=== PATIENT | male | born 1985 | race Caucasian/White ===

== ENCOUNTER 2019-03-10 10:56 | Emergency (ER) | payer SELFPAY ==
[2019-03-10 11:00] VITALS: BP 116/97; PULSE 69; RESP 20; TEMP 36.4; O2SAT 100; BMI 36.9
--- NOTE | 2019-03-10 11:10 | EKG12_ITS ---
Test Reason : CP Blood Pressure : / mmHG Vent. Rate : 075 BPM Atrial Rate : 075 BPM P-R Int : 148 ms QRS Dur : 104 ms QT Int : 386 ms P-R-T Axes : 061 027 021 degrees QTc Int : 431 ms Normal sinus rhythm with sinus arrhythmia Normal ECG Confirmed by AUGUSTINE GOMEZ, ALFRED ([id number]), mapping editor RICHIE AGUERO ([id number]) on 03/15/2019 9:43:07 A M Referred By: Confirmed By:LAUREANO BRADSHAW MD
--- NOTE | 2019-03-10 11:34 | RAD_ITS ---
STUDY: X-RAY CHEST REASON FOR EXAM: Male, 33 years old. Shortness of breath, panic attack TECHNIQUE: Single AP portable view of the chest. COMPARISON: None. FINDINGS: The lungs are clear and expanded. There is no demonstrated pleural abnormality. Normal size heart. Normal mediastinum and liliam. Normal visualized pulmonary arteries. Normal visualized aortic arch and descending thoracic aorta. Normal visualized thoracic spine. Normal visualized ribs, clavicles, and shoulders. There is no demonstrated abnormality of the visualized soft tissue structures of the upper abdomen. RAD/Chest 1 View (Portable) IMPRESSION: Normal x-ray examination of the chest. Electronically Signed: Mehdi Hernadez MD at 11:49 EDT Tel , Service support ,
--- NOTE | 2019-03-10 12:09 | ED.VISSUMM ---
- ER Visit Summary Date of Service: 03/10/19 Chief Complaint: Chest pain and shortness of breath History of Present Illness: The patient is a [address] Arellano. Patient reports that at work today he was worried that he was going to lose his job. He reports that approximately 730 this morning he began feeling short of breath. At 930 this morning he developed chest pain. He reports it was on the left side. It was a sharp pain is 5 out of 10 at worst and is 1 out of 10 currently. It was worsened by nothing including exertion. It was decreased with breathing better. Patient reports during this episode he did develop tingling in his face and hands and feet bilaterally. He states he had similar symptoms previously with anxiety. Physical Examination: Vitals: Stable. Afebrile. General: Well-nourished and well-developed. Head: Normocephalic atraumatic. Neck: Supple, no lymphadenopathy. No JVD. Nontender. Cardiovascular: Regular rate and rhythm. No murmurs. Respiratory: No respiratory distress. Clear to auscultation bilaterally. Abdominal: Soft, nontender, nondistended, normal bowel sounds. No guarding, rebound, or peritoneal signs. Back: Nontender. Extremities: Nontender, no edema. Skin: Normal color, no rash. Neurologic: Alert and oriented ?3. Cranial nerves II through XII are intact. Normal strength and sensation. Psych: Normal affect. Test Results: EKG is sinus at [address] changes. Chest x-ray is normal. Emergency Department Course and Treatment: Patient is resting comfortably. He refused medications for anxiety. He would like to go home. Treatment Plan: Patient symptoms are more consistent with anxiety then ischemia. I feel it is a suitable candidate to go home and follow-up his primary care physician for further evaluation. Is instructed return to emerge part for any worsening symptoms. Disposition: To home in improved and stable condition. Impression: 1. Anxiety. This note was generated with [employer] dictation software. It may contain incorrect words, spelling, and punctuation that were not noted in review of the chart prior to signing ED Disposition - Plan for ED Patient: Disposition: Home or Assisted Living Instructions: Anxiety Reaction, Hyperventilation Syndrome Referrals: Ricardo Arellano MD [NON-STAFF] - 1-2 Days if not improving
== END 2019-03-10 12:30 | disposition home or self-care (01) ==
PROVIDERS: Emergency Provider Emergency Medicine
DX: F41.9 Anxiety disorder, unspecified (principal)
CPT/HCPCS: 71045; 93005; 99285; A4216

== ENCOUNTER 2019-08-08 13:59 | Emergency (ER) | payer OTHER, SELFPAY ==
[2019-08-08 14:01] VITALS: BP 131/66; PULSE 64; RESP 16; TEMP 36.2; O2SAT 98; BMI 36.3
--- NOTE | 2019-08-08 14:04 | RAD_ITS ---
STUDY: X-RAY - RIGHT RADIUS AND ULNA REASON FOR EXAM: Male, 33 years old. PAIN TO MID/DISTAL FOREARM. 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 COMPARISON: None. FINDINGS: There is no demonstrated soft tissue swelling. Normal visualized radius. Normal visualized ulna. RAD/Forearm 2 Views IMPRESSION: Normal x-ray examination of the radius and ulna. Electronically Signed: Alex Og, at 14:33 EDT , Service support ,
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
== END 2019-08-08 15:43 | disposition home or self-care (01) ==
LOC: ED 15:41
PROVIDERS: Emergency Provider Emergency Medicine
DX: S50.11XA Contusion of right forearm, initial encounter (principal); W22.8XXA Striking against or struck by other objects, initial encounter; Y93.9 Activity, unspecified; Y92.89 Other specified places as the place of occurrence of the external cause; Y99.0 Civilian activity done for income or pay
CPT/HCPCS: 73090; 99283

== ENCOUNTER 2021-01-20 09:00 | Outpatient (RCR) | payer OTHER, SELFPAY ==
[2019-08-14 14:50] VITALS: BMI 36.3
--- NOTE | 2020-11-19 13:24 | HP.PTEVAL_ITS ---
Patient's Visit Information ANISA PALOMINO is a 35 year old M referred to Physical Therapy by Jaret Hameed PA-C with a diagnosis of S/P L ACL allograft and menisecotmy DOS 09-04-2020. Date of Evaluation: 11/19/20 Physical Therapist: RAISA Davenport - Visit Plan Frequency: 2-3x /Week Duration: 6 Weeks Plan: Given HEP: SLR, S/L hip abd, Prone hip ext, Hip flexor stretch with towels under thigh, Prone hang, QS. 2-3X/ week for 6 weeks for L knee AROM/PROM (especially extension of L knee), L hip and knee strengthening, gait training, balance and proprioception, stairs, eccentric control, stretching of hip flexors, functional activities with HEP - Subjective Pt was playing basketball in July and he tore his meniscus. They did surgery September 04 and cut it out. They did an Allograph for his ACL. He had a few sessions over at [facility] and his insurance changed. He is 10 weeks post op ( 11 weeks tomm). He is not allowed to do any ty enmanuel do until February. He is walking fully. He has no brace at this point. He feels that his ROM is a lot better but he still gets pain and every once in awhile he feels it gives out. He uses the cross racehorse trainer at the gym and that helps a lot. The regular elliptical bothered him. Stairs: he is able to go up and down recip with a railing. Sit to stand: able to get up without using his arms. He was doing leg press 90/45 L leg, leg curls, hip ext.... He is sleeping ok... once in awhile he will have pain if he turns funny. - Objective gait: walks with decrease stance time on the L and decreased hip extension with gait. L knee AROM: -5 degrees ext, and 125 degrees L knee flexion. R knee AROM: -1 degrees ext and 132 degrees R knee flexion. Tib tub L 40, 42.2, 46.1. R 39, 40.5, 45.4. LE MMT: B hip flex 4-/5, R knee ext 4+/5 and L 4-/5, R knee flex 4+/5, ext 4-/5, L hip abd 4-/5 and R hip abd 4/5. Tight B hip flexors especilly on the L. Stairs: up and down recip but increase tightness on the L and decrease eccentric control. Eccentric control is weak on the L side especially with descending steps. - Goals Goal 1:: I HEP Goal Time Frame: 6-8 Weeks Goal 2:: Increase L knee AROM 0- 130 degrees Goal Time Frame: 6-8 Weeks Goal 3:: Increase L knee and hip strength by 1/2 muscle grade (at the time of eval: (LE MMT: B hip flex 4-/5, R knee ext 4+/5 and L 4-/5, R knee flex 4+/5, ext 4-/5, L hip abd 4-/5 and R hip abd 4/5) Goal Time Frame: 6-8 Weeks Goal 4:: Walk with normal gait pattern Goal Time Frame: 4-6 Weeks Goal 5:: Be able to go up and down the stairs recip with good eccentric control and no hesitancy - Rehabilitation Potential Rehabilitation Potential: Good - Anticipated Interventions Patient/Client Instruction: Educate patient on: Condition, Plan of Care For the Purpose of:: To decrease pain, To increase ROM, To improve nutrient delivery to tissue, To improve muscle performance and motor function, To improve ability to perform ADL's, To increase tolerance to activity/condition/position, To improve performance and independence with ADL's, To improve ability of physical actions for home/community/work/leisure, To improve gait and locomotor functions, To improve health of tissue, To decrease soft tissue restriction, To increase flexibility/ROM, To improve endurance, To improve balance, To reduce risk of recurrence Therapeutic Exercise to Include: Strength training, Endurance training, Balance training, Postural training, Flexibilty training, Gait and locomotor training, Passive ROM, Active ROM For the Purpose of:: To decrease pain, To increase ROM, To improve nutrient delivery to tissue, To improve muscle performance and motor function, To improve ability to perform ADL's, To increase tolerance to activity/condition/position, To improve performance and independence with ADL's, To decrease level of supervi romi to perform tasks, To improve ability of physical actions for home/community/work/leisure, To improve gait and locomotor functions, To improve health of tissue, To decrease soft tissue restriction, To increase flexibility/ROM, To improve endurance, To improve balance, To improve safety with gait Functional Training to Include: Gait training For the Purpose of:: To improve gait and locomotor functions Manual Therapy Techniques to Include: Mobilization, Passive ROM For the Purpose of:: To increase ROM IF ES: Yes Cryotherapy (ice pack, ice massage): Yes For the Purpose of:: To decrease pain, To decrease swelling/inflammation, To improve nutrient delivery to tissue Thank you for the opportunity to evaluate your patient. For Medicare and Medicare HMO plans, please review the plan of care and approve it. It will need to be FAXED BACK to us at [phone] for Medicare purposes. For Medicare only, by signing this I certify the plan of care. Please let me know if there are questions or concerns regarding this plan of care. Physician Signature: Date:
--- NOTE | 2020-12-18 12:16 | HP.PTREVAL ---
Jaret Hameed PA-C, It has been my pleasure to treat ANISA Rand GEORGETTE over the last 10 visits for S/P L ACL allograft and menisecotmy DOS 09-04-2020. Please see the progress note below for an update on the physical therapy plan of care! Subjective: Pt. reports being 90% better overall. Pt. reports some soreness with walking on his L leg. A little soreness after PT session, usually lasting a few hours at most. I assured him that this is fairly normal. Objective/Function: Pt. is overall doing well. Pt. reports some mild pain with end range extension with over pressure. ROM: 0-5-128deg actively, passively 0-2-132deg. Pt. slowly migrated to full knee extension with passive stretching. I talked to him about controlled stretching into extension. He is progressing, but slowly. He has overall improved strength of his LLE: L knee: ext 4/5, flexion 4/5, hip flexion 4/5, abd 4/5, ext 4/5. He has decent squat pattern without valgus positioning. Pt. had minmal lateral wt. shift off of his LLE with squating. STAIRS: pt. is able to completed with eccentric lowering. Pt. is methodical, no railings, but reports weakness with descending. Plan Plan: COnt. with POC, continue to add in terminal knee ext both passive/active, eccentric quad/glulte/HS strengthening. PRogress gait mechanics. Goals Goal 1:: I HEP Goal Time Frame: 6-8 Weeks Goal Progress: Progressing Goal 2:: Increase L knee AROM 0- 130 degrees Goal Time Frame: 6-8 Weeks Goal Progress: Progressing Goal 3:: Increase L knee and hip strength by 1/2 muscle grade (at the time of eval: (LE MMT: B hip flex 4-/5, R knee ext 4+/5 and L 4-/5, R knee flex 4+/5, ext 4-/5, L hip abd 4-/5 and R hip abd 4/5, 12/18/20: LLE: L knee: ext 4/5, flexion 4/5, hip flexion 4/5, abd 4/5, ext 4/5) Goal Time Frame: 6-8 Weeks Goal Progress: Progressing Goal 4:: Walk with normal gait pattern (pt. ambulates pretty methodical and is still lacking TKE during L stance phase) Goal Time Frame: 4-6 Weeks Goal Progress: Progressing Goal 5:: Be able to go up and down the stairs recip with good eccentric control and no hesitancy (is able to ascend/decend with out HR, but does have some difficulty with controlled eccentric) Goal Time Frame: 4-6 Weeks Goal Progress: Progressing Anticipated Interventions Patient/Client Instruction: Educate patient on: Condition, Plan of Care For the Purpose of:: To decrease pain, To increase ROM, To improve nutrient delivery to tissue, To improve muscle performance and motor function, To improve ability to perform ADL's, To increase tolerance to activity/condition/position, To improve performance and independence with ADL's, To improve ability of physical actions for home/community/work/leisure, To improve gait and locomotor functions, To improve health of tissue, To decrease soft tissue restriction, To increase flexibility/ROM, To improve endurance, To improve balance, To reduce risk of recurrence Therapeutic Exercise to Include: Strength training, Endurance training, Balance training, Postural training, Flexibilty training, Gait and locomotor training, Passive ROM, Active ROM For the Purpose of:: To decrease pain, To increase ROM, To improve nutrient delivery to tissue, To improve muscle performance and motor function, To improve ability to perform ADL's, To increase tolerance to activity/condition/position, To improve performance and independence with ADL's, To decrease level of supervision to perform tasks, To improve ability of physical actions for home/community/work/leisure, To improve gait and locomotor functions, To improve health of tissue, To decrease soft tissue restriction, To increase flexibility/ROM, To improve endurance, To improve balance, To improve safety with gait Functional Training to Include: Gait training For the Purpose of:: To improve gait and locomotor functions Manual Therapy Techniques to Include: Mobilization, Passive ROM For the Purpose of:: To increase ROM IF ES: Yes Cryotherapy (ice pack, ice massage): Yes For the Purpose of:: To decrease pain, To decrease swelling/inflammation, To improve nutrient delivery to tissue Please do not hesitate to contact me at [phone] by phone or if you have questions or concerns regarding this new plan of care! Sincerely, Dirk Chowdary DPT
--- NOTE | 2021-01-20 09:32 | HP.PTDCSUM ---
It has been my pleasure to treat ANISA Rand GEORGETTE referred by Jaret Hameed PA-C, with the diagnosis of S/P L ACL allograft and menisecotmy DOS 09-04-2020 for a total of 18 visit(s). Discharge Date: 01/20/21 Please see the following information for a summary of their discharge status. Subjective: Pt reports that he is doing a lot better. He has no pain. He sometimes has a little pain when his knee goes completely straight. He reports that his motion is better. He was able to hike 2 weeks ago and did not have a problem with a brace on and had a dog and a baby on him the whole time. He feels strong. He knows that he can not do [place] yet. He goes back to the Dr in Feb. He is doing his HEP and has a gym within walking distance to his house. Left Knee Pain Intensity (Out of 10): 0 % Improvement: 98 Objective/Function: Gait:Walks with normal gait pattern with maybe a slight decrease stance time on the L. L knee AROM: -5 from full knee extension to 133 L knee flexion. SLB L: 30 seconds. Pt is able to do X 3 single leg heel raise on the L with decreased balance and fluidity. Stairs: Pt is able to go up and down the stairs recip with no hand rail. L knee MMT: ext 4+/5, flexion 4+/5, hip flexion 4+/5, abd 4+/5, ext 4+/5). Goal 1:: I HEP Goal Progress: Goal Met Goal 2:: Increase L knee AROM 0- 130 degrees Goal Progress: Progressing Goal 3:: Increase L knee and hip strength by 1/2 muscle grade (at the time of eval: (LE MMT: B hip flex 4-/5, R knee ext 4+/5 and L 4-/5, R knee flex 4+/5, ext 4-/5, L hip abd 4-/5 and R hip abd 4/5, 12/18/20: LLE: L knee: ext 4/5, flexion 4/5, hip flexion 4/5, abd 4/5, ext 4/5) Goal Progress: Goal Met Goal 4:: Walk with normal gait pattern (pt. ambulates pretty methodical and is still lacking TKE during L stance phase) Goal Progress: Goal Met Goal 5:: Be able to go up and down the stairs recip with good eccentric control and no hesitancy (is able to ascend/decend with out HR, but does have some difficulty with controlled eccentric) Goal Progress: Goal Met Plan: DC PT to HEP. Encouraged pt to twice a day work on terminal knee extension and also work on on L single leg heel raises in addition to his gym rountine Discharge Comments: DC PT to HEP and I gym rountine If there are questions or concerns regarding this patient's physical therapy, please feel free to call me at [phone]. Thank you for the referral of this patient. Sincerely, Leydi Dan, MPT Balance/Gait/Functional tests - Balance/Special Test Scores Lower Extremity Functional Score: 66
== END 2021-01-20 12:43 | disposition home or self-care (01) ==
LOC: PT 09:00
PROVIDERS: Referring Provider Physician Assistant; Visit Provider Physician Assistant
DX: S83.232D Complex tear of medial meniscus, current injury, left knee, subsequent encounter (principal); S83.512D Sprain of anterior cruciate ligament of left knee, subsequent encounter; X58.XXXD Exposure to other specified factors, subsequent encounter
CPT/HCPCS: 97110; 97161; 97164; 97530

== ENCOUNTER 2021-06-03 11:22 | Outpatient (CLI) | payer BC, SELFPAY | END 2021-06-03 23:59 | disposition short-term general hospital (02) | LOC: LABSPEC 11:23 | PROVIDERS: Referring Provider Physician Assistant Surgical; Visit Provider Physician Assistant Surgical | DX: U07.1 COVID-19 (principal) | CPT/HCPCS: 87635; U0003; U0005 ==

== ENCOUNTER 2021-12-18 18:09 | Emergency (ER) | payer BC, SELFPAY ==
[2021-12-18 18:10] VITALS: BP 143/86; PULSE 68; RESP 16; TEMP 36.4; O2SAT 99; BMI 39.3
[2021-12-18 18:15] VITALS: PULSE 66; RESP 18; O2SAT 99
--- NOTE | 2021-12-18 18:15 | EKG12_ITS ---
Test Reason : CP Blood Pressure : / mmHG Vent. Rate : 060 BPM Atrial Rate : 060 BPM P-R Int : 170 ms QRS Dur : 106 ms QT Int : 414 ms P-R-T Axes : 043 011 014 degrees QTc Int : 414 ms Normal sinus rhythm Normal ECG Confirmed by CELESTE GOMEZ, MELISSA ([id number]), metropolitan editor ZAK TUTTLE ([id number]) on 12/19/2021 10:20:36 AM Referred By: BROOK Confirmed By:MELISSA ALONSO MD
[2021-12-18 18:29] VITALS: O2SAT 99
--- NOTE | 2021-12-18 18:30 | ED.VIS.CHEST ---
HPI <VIRAJ Wesley - Last Filed: 12/18/21 19:05> History of Present Illness Chief Complaint: Chest Pain Narrative Narrative: 36-year-old male with past medical history of hypertension, hyperlipidemia presents with midsternal chest pressure that started at 9 AM at rest. He was sitting at his desk at work. It continued all day but does seem worse if he stands up and walks. There is no radiation of pain. No shortness of breath, nausea, vomiting, or diaphoresis. It was not affected by eating or drinking. He has no history of similar pain. He states he has had chest pain remotely in the past with an anxiety attack but this feels completely different. He was on blood pressure and cholesterol medications last year but self discontinued them and states when he saw his new doctor his blood pressure was always normal. He does not smoke, used to chew, and denies drug use. He has no history of DVT/PE or risk factors. No recent fever cough. PFSH <VIRAJ Wesley - Last Filed: 12/18/21 19:05> [facility] Medical History Hypertension Home Medications cyclobenzaprine 10 mg tablet 10 mg PO TID PRN Muscle Spasm #20 TABLETS 12/18/21 [Rx Last Taken Unknown] duloxetine 60 mg capsule,delayed release (Cymbalta) 60 mg PO DAILY 12/18/21 [History Last Taken Unknown] Allergy/AdvReac Type Severity Reaction Status Date / Time No Known Allergies Allergy Verified 12/18/21 18:15 Family History Other Myocardial infarction Surgical History History of lumbar fusion Social History Smoking Status: Never smoker ROS <VIRAJ Wesley - Last Filed: 12/18/21 19:05> ROS ED ROS Narrative Constitutional: Negative for fever, chills, malaise. Eyes: Negative for visual change. ENT: Negative for sore throat, ear pain, rhinorrhea. CVS: Positive for chest pain. Negative for palpitations, syncope. Respiratory: Negative for shortness of breath, cough, orthopnea. GI: Negative for abdominal pain, nausea, vomiting, diarrhea, constipation, melena, hematochezia. : Negative for dysuria, hematuria or frequency. Neuro: Negative for headache, motor/sensory dysfunction. Skin: Negative for rash, abscess, or wound. Musc: Negative for joint pain, swelling, trauma. Heme: Negative for easy bruising, bleeding, lymphadenopathy. EXAM <VIRAJ Wesley - Last Filed: 12/18/21 19:05> Physical Exam Narrative Exam Narrative: CONST: Patient sitting in no acute distress. EYES: Normal inspection. NECK: Normal inspection. RESP: No respiratory distress, CTAB. CVS: Regular rate and rhythm, no murmur, no gallop. ABD: Soft and nontender, no guarding or rebound, nondistended, no hepatosplenomegaly. SKIN: Color normal, no rash, warm, dry, intact. EXTREMITIES: Normal appearance, no pedal edema. NEURO: Oriented x4. PSYCH: Normal affect. Const Vital Signs: 12/18/21 18:10 12/18/21 18:21 12/18/21 18:15 Temperature 97.6 F L Temperature Source Temporal Pulse Rate 68 66 Respiratory Rate 16 18 Respiratory Effort Normal Non-Labored Blood Pressure 143/86 H Blood Pressure Mean 105 Pulse Ox 99 99 Oxygen Delivery Method Room Air Room Air 12/18/21 18:29 12/18/21 19:13 Temperature Temperature Source Pulse Rate 71 Respiratory Rate 16 Respiratory Effort Blood Pressure 149/88 H Blood Pressure Mean Pulse Ox 99 98 Oxygen Delivery Method Room Air <Dr. Per Valadez DO - Last Filed: 12/18/21 19:26> Physical Exam Const Vital Signs: 12/18/21 18:10 12/18/21 18:21 12/18/21 18:15 Temperature 97.6 F L Temperature Source Temporal Pulse Rate 68 66 Respiratory Rate 16 18 Respiratory Effort Normal Non-Labored Blood Pressure 143/86 H Blood Pressure Mean 105 Pulse Ox 99 99 Oxygen Delivery Method Room Air Room Air 12/18/21 18:29 12/18/21 19:13 Temperature Temperature Source Pulse Rate 71 Respiratory Rate 16 Respiratory Effort Blood Pressure 149/88 H Blood Pressure Mean Pulse Ox 99 98 Oxygen Delivery Method Room Air <VIRAJ Wesley - Last Filed: 07/21/22 19:05> Heart Score History: Slightly/Non-Suspicious ECG: Normal Age: </= 44 years Risk Factors: >/= 3 Risk Factors or History of CAD Score: 2 <Dr. Per Valadez DO - Last Filed: 12/18/21 19:26> Heart Score Troponin: </= Normal Limit Score: 2 MDM <VIRAJ Wesley - Last Filed: 12/18/21 19:05> [facility] MDM Narrative Medical decision making narrative: Patient presented with midsternal chest pressure that started at rest and has continued throughout the day. He appears well and nontoxic. Vital signs within normal limits. He does have some reproducible tenderness of the chest wall. Heart is regular. Lungs clear. Abdomen soft and nontender. No lower extremity edema or calf tenderness. He is PERC negative. EKG is normal sinus rhythm with no ischemic changes. Cardiac work-up and chest x-ray will be obtained. CBC, BMP, troponin are all within normal limits. Reports over 9 hours of chest pain he has rule out ACS. With his reproducible chest pain and worsening with movement of his shoulder this is likely musculoskeletal. He was treated with Toradol. We discussed OTC analgesia and I prescribed Flexeril. He was discharged home to follow-up with his primary care. 1. Atypical chest pain, musculoskeletal pain Lab Data Attestation: I reviewed the patient's lab results. Labs: Laboratory Results - last 24 hr 12/18/21 12/18/21 18:22 18:22 WBC 9.7 RBC 5.65 Hgb 16.2 Hct 46.7 MCV 82.7 MCH 28.7 MCHC 34.7 RDW Std Deviation 39.8 RDW Coeff of Caitlyn 13.3 Plt Count 399 MPV 9.2 Immature Gran % (Auto) 0.200 Neut % (Auto) 48.8 Lymph % (Auto) 42.2 H Parker % (Auto) 6.6 Eos % (Auto) 1.5 Baso % (Auto) 0.7 Absolute Neuts (auto) 4.7 Absolute Lymphs (auto) 4.10 Nucleated RBC % 0 Sodium 137 Potassium 3.9 Chloride 102 Carbon Dioxide 29.0 Anion Gap 6 BUN 11 Creatinine 1.06 Estim Creat Clear Calc 104.73 Est GFR (MDRD) Af Amer 101 Est GFR (MDRD) Non-Af 84 BUN/Creatinine Ratio 10.4 Glucose 92 Calcium 9.6 Troponin I High Sens 5 Radiography Chest X-Ray - ED: 1 View, Read by ED Physician, Normal, Heart, Lungs, Mediastinum, Bony Structures and No Acute Disease Diagnostic Testing: ED attending interpretation shows normal heart size, no acute infiltrate, edema, or effusion. EKG Initial EKG: Attestation: I personally reviewed and interpreted this EKG as follows: Interpretation: Sinus Rhythm and No Acute Injury Pattern Comments: Normal sinus rhythm, SC interval 170 ms, QRS duration 106 ms, QTc 414 ms <Dr. Per Valadez, DO - Last Filed: 12/18/21 19:26> MDM MDM Narrative Medical decision making narrative: This patient was seen with a PA/NUCLEAR MEDICINE SPECIALIST Individually assessed they patient including history and physical. I have reviewed everything on the chart that is available and agree with the documentation provided by the PA/NUCLEAR MEDICINE SPECIALIST including discussion about the assessment, treatment plan, discussion, and return precautions. 36-year-old male presenting with left-sided chest pain which is reproducible in the left pectoralis. There is pain elicited in this area when I range his left shoulder. Lungs clear to auscultation. Cardiac regular rate and rhythm without murmur. He does not describe the pain is radiating. He has no shortness of breath or lightheadedness with this. Has not been diaphoretic. He has no cardiac history. He had a reported history of hypertension and hyperlipidemia but he states he followed with a new provider and was told his blood pressure and cholesterol was normal and does not need any medications for this. His heart score is 2 however he has had pain constantly for 9 hours or greater and is high sensitive troponin is only 5. EKG is sinus rhythm without signs of ischemic changes or dysrhythmia. CBC, BMP are normal. Patient was given Toradol in the ED. He is given Flexeril and instructions to use [id number] anti-inflammatories for home. He is to follow-up with his primary care physician outpatient. Return precautions were discussed. Patient presented with midsternal chest pressure that started at rest and has continued throughout the day. He appears well and nontoxic. Vital signs within normal limits. He does have some reproducible tenderness of the chest wall. Heart is regular. Lungs clear. Abdomen soft and nontender. No lower extremity edema or calf tenderness. He is PERC negative. EKG is normal sinus rhythm with no ischemic changes. Cardiac work-up and chest x-ray will be obtained. CBC, BMP, troponin are all within normal limits. Reports over 9 hours of chest pain he has rule out ACS. With his reproducible chest pain and worsening with movement of his shoulder this is likely musculoskeletal. He was treated with Toradol. We discussed OTC analgesia and I prescribed Flexeril. He was discharged home to follow-up with his primary care. 1. Atypical chest pain, musculoskeletal pain Lab Data Labs: Laboratory Results - last 24 hr 12/18/21 12/18/21 18:22 18:22 WBC 9.7 RBC 5.65 Hgb 16.2 Hct 46.7 MCV 82.7 MCH 28.7 MCHC 34.7 RDW Std Deviation 39.8 RDW Coeff of Caitlyn 13.3 Plt Count 399 MPV 9.2 Immature Gran % (Auto) 0.200 Neut % (Auto) 48.8 Lymph % (Auto) 42.2 H Parker % (Auto) 6.6 Eos % (Auto) 1.5 Baso % (Auto) 0.7 Absolute Neuts (auto) 4.7 Absolute Lymphs (auto) 4.10 Nucleated RBC % 0 Sodium 137 Potassium 3.9 Chloride 102 Carbon Dioxide 29.0 Anion Gap 6 BUN 11 Creatinine 1.06 Estim Creat Clear Calc 104.73 Est GFR (MDRD) Af Amer 101 Est GFR (MDRD) Non-Af 84 BUN/Creatinine Ratio 10.4 Glucose 92 Calcium 9.6 Troponin I High Sens 5 Discharge Plan Triage Chief Complaint: Chest Pain ED Midlevel Provider: Chula Baron ED Provider: Per Valadez Dx/Rx/DC Orders Clinical Impression: Chest wall pain Instructions: ED Chest Pain, Noncardiac Prescriptions: New cyclobenzaprine 10 mg tablet 10 mg PO TID PRN (Reason: Muscle Spasm) Qty: 20 0RF No Action duloxetine [Cymbalta] 60 mg Capsule,Delayed Release(Dr/Ec) 60 mg PO DAILY Primary Care Provider: Paulo Smith NP Referrals: Paulo Smith NUCLEAR MEDICINE SPECIALIST, NUCLEAR MEDICINE SPECIALIST-C [Primary Care Provider] - Activity Restrictions/Additional Instructions: Your blood work and EKG were all normal. There is no signs this is your heart. It is likely musculoskeletal and you should take Tylenol ibuprofen every 6 hours as needed. Follow-up with your primary care doctor. Disposition Disposition: Home, Self Care Discharge Date/Time: 12/18/21 19:13
--- NOTE | 2021-12-18 18:37 | RAD_ITS ---
STUDY: X-RAY CHEST REASON FOR EXAM: Male, 36 years old. chest pain TECHNIQUE: 1 view COMPARISON: 03/10/2019 FINDINGS: Cardiomediastinal silhouette is unremarkable. Costophrenic angles are sharp. Lungs are clear. The trachea is midline. There is no pneumothorax. The bones are grossly intact. RAD/Chest 1 View (Portable) IMPRESSION: No acute cardiopulmonary process. Electronically Signed: Nato Hooks MD at 19:47 EDT ,
[2021-12-18 18:38] LABS: Absolute Neutrophil Count 4.7 X10^3/uL (2.0-7.7); Basophil# 0.07 X10^3/uL; Basophil% 0.7 % (0-1); Eosinophil# 0.15 X10^3/uL; Eosinophils% 1.5 % (0-5); Hematocrit 46.7 % (40-54); Hemoglobin 16.2 g/dL (13.0-16.5); Lymphocyte % 42.2 % (19-41); Mean Corp Hgb Conc 34.7 g/dL (32-36); Mean Corpuscular Hgb 28.7 pg (27.0-32.0); Mean Corpuscular Volume 82.7 fL (80-94); Mean Platelet Vol. 9.2 fl (6.2-12.0); Monocyte# 0.64 X10^3/uL; Monocyte% 6.6 % (0-10); NRBC Flagged by Analyzer 0 % (0-5); Neutrophil # 4.74 X10^3/uL (2.7-7.7); Neutrophil % 48.8 % (47-70); Platelet Count 399 K/mm3 (150-450); RBC Distribution Width CV 13.3 % (11.6-14.6); RBC Distribution Width SD 39.8 fl (35.1-43.9); Red Blood Count 5.65 M/mm3 (4.6-6.2); White Blood Count 9.7 K/mm3 (4.4-11.0)
[2021-12-18] MEDS: Aspirin 81 MG TAB.CHEW 324 MG PO (18:39)
[2021-12-18 18:58] LABS: Anion Gap 6 (5-15); BUN 11 mg/dL (7-18); BUN/Creat Ratio 10.4 RATIO (10-20); Calcium,Total 9.6 mg/dL (8.5-10.1); Chloride 102 mmol/L (98-107); Creatinine, Serum 1.06 mg/dL (0.70-1.30); EST Glomerular Filtration Rate 84 mL/min (>60); Est Glom Filt Rate - Afr Amer 101 mL/min (>60); Estimated Creatinine Clearance 104.73 ml/min; Glucose 92 mg/dL (74-106); Potassium 3.9 mmol/L (3.5-5.1); Sodium Level 137 mmol/L (136-145); Troponin-I HS (w/2H Reflex) 5 pg/mL (3.0-78.0)
[2021-12-18] MEDS: Ketorolac 30 MG/ML Syringe IV (19:01)
[2021-12-18 19:13] VITALS: BP 149/88; PULSE 71; RESP 16; O2SAT 98
[2021-12-18 20:35] LABS: Reflex Troponin-HS? (from REC) Y
== END 2021-12-18 19:13 | disposition home or self-care (01) ==
PROVIDERS: Physician Assistant; Emergency Provider Student in an Organized Health Care Education/Training Program; PCP Nurse Practitioner Primary Care; Visit Provider Student in an Organized Health Care Education/Training Program
DX: R07.89 Other chest pain (principal); M25.512 Pain in left shoulder; E78.5 Hyperlipidemia, unspecified; I10 Essential (primary) hypertension
CPT/HCPCS: 71045; 80048; 84484; 85025; 93005; 96374; 99285; A4216